=== PATIENT | male | born 1990 | race Caucasian/White ===

== ENCOUNTER 2017-12-10 20:49 | Inpatient (IN) | payer OTHER ==
[~2017-12-10] VITALS: Ht 170.2 cm; Wt 86.0 kg
[2017-12-10 20:55] VITALS: BP 163/79; PULSE 100; RESP 16; TEMP 97.9; O2SAT 100
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
[2017-12-10] MEDS ORDERED: PROPOFOL 200 MG/20 ML AMP IV ONE (21:15)
[2017-12-10] MEDS ORDERED: DIPHTH/TETANUS/ACEL PERTUSSIS (BOOSTER) 0.5 ML VIAL/PFS IM ONE (21:15)
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
[2017-12-10] MEDS ORDERED: ceFAZolin 2 GM PREMIX 50 ML IV ONE (21:45)
[2017-12-10 22:06] LABS: AUTOMATED NEUTROPHIL # 7.8 TH/MM3 (1.8-7.7); BASOPHIL # 0.1 TH/MM3 (0-0.2); BASOPHIL % 0.7 % (0.0-2.0); EOSINOPHIL # 0.4 TH/MM3 (0-0.4); EOSINOPHIL % 3.1 % (0.0-4.0); HEMATOCRIT 41.5 % (39.0-51.0); LYMPH % 25.5 % (9.0-44.0); LYMPHOCYTE # 3.1 TH/MM3 (1.0-4.8); MEAN CELL VOLUME 87.9 FL (80.0-100.0); MEAN CORPUSCULAR HEMOGLOBIN 29.5 PG (27.0-34.0); MEAN CORPUSCULAR HGB CONC 33.6 % (32.0-36.0); MEAN PLATELET VOLUME 8.2 FL (7.0-11.0); MONO % 7.1 % (0.0-8.0); MONOCYTE # 0.9 TH/MM3 (0-0.9); NEUT % 63.6 % (16.0-70.0); PLATELET COUNT 284 TH/MM3 (150-450); RED BLOOD COUNT 4.73 MIL/MM3 (4.50-5.90); RED CELL DISTRIBUTION WIDTH 13.5 % (11.6-17.2); WHITE BLOOD COUNT 12.3 TH/MM3 (4.0-11.0)
--- NOTE | 2017-12-10 22:10 | RADRPT ---
EXAM DATE/TIME: 12/10/2017 21:39 [facility] COMPARISON: No previous studies available for comparison. INDICATIONS : Post reduction. MEDICAL HISTORY : None. SURGICAL HISTORY : None. ENCOUNTER: Subsequent ACUITY: 1 day PAIN SCORE: 10/10 LOCATION: Left middle forearm. FINDINGS: Two view examination of the left forearm demonstrates cast placement across fractures of the distal l eft radius and ulnar with improvement in alignment. CONCLUSION: 1. Status post cast placement with near anatomic alignment. Viral Jefferson MD on December 10, 2017 at 22:07 Board Certified Radiologist. This report was verified electronically.
[2017-12-10] MEDS ORDERED: ceFAZolin 2 GM PREMIX 100 ML IV ONE (22:15)
[2017-12-10 22:19] LABS: BICARBONATE 27.6 MEQ/L (21.0-32.0); CALCIUM 8.9 MG/DL (8.5-10.1); CREATININE 1.12 MG/DL (0.60-1.30)
[2017-12-10] MEDS ORDERED: SODIUM CHLOR 0.9% 1000 ML INJ 1,000 ML IV SCH (22:25)
[2017-12-10 22:27] LABS: INTERNATIONAL NORMALIZED RATIO 1.1 RATIO; PROTHROMBIN TIME - PATIENT 11.1 SEC (9.8-11.6)
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
[2017-12-10 23:00] VITALS: BP 157/80; PULSE 84; RESP 16; O2SAT 99
[2017-12-10] MEDS ORDERED: IOHEXOL 350 MG/ML 10 ML VIAL (for RAD DIAG) IVCONTRAST ONE (23:08)
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
[2017-12-11] VITALS: BP 110/70; PULSE 72; RESP 18; TEMP 99; O2SAT 98
[2017-12-11 00:30] VITALS: BP 135/74; PULSE 80; RESP 16; O2SAT 99
[2017-12-11] MEDS ORDERED: SENNOSIDES 8.6 MG TAB PO PRN (01:00)
[2017-12-11] MEDS ORDERED: ACETAMINOPHEN 325 MG TAB PO PRN (01:00)
[2017-12-11] MEDS ORDERED: HYDROmorphone HCL PF 2 MG/ML VIAL IV PUSH PRN (01:00)
[2017-12-11] MEDS ORDERED: ONDANSETRON HCL 4 MG/2 ML VIAL IVP PRN (01:00)
[2017-12-11] MEDS ORDERED: LACTULOSE SYRUP 20 GM/30 ML CUP PO PRN (01:00)
[2017-12-11] MEDS ORDERED: SODIUM CHLORIDE 0.9% FLUSH 10 ML FLUSH IV FLUSH PRN (01:00)
[2017-12-11] MEDS ORDERED: BISACODYL 10 MG SUPP RECTAL PRN (01:00)
[2017-12-11] MEDS ORDERED: MAGNESIUM HYDROXIDE SUSP 30 ML CUP PO PRN (01:00)
[2017-12-11] MEDS ORDERED: NALOXONE HCL 0.4 MG/ML AMP IV PUSH PRN (01:00)
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
[2017-12-11 04:00] VITALS: BP 145/80; PULSE 72; RESP 16; TEMP 99; O2SAT 98
[2017-12-11] MEDS: SODIUM CHLOR 0.9% 1000 ML INJ 1,000 ML IV SCH ×3 (05:27→20:53)
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
[2017-12-11] MEDS ORDERED: HYDR-3583 PO (07:24)
[2017-12-11] MEDS: SODIUM CHLORIDE 0.9% FLUSH 10 ML FLUSH IV FLUSH SCH ×2 (07:54→21:00)
[2017-12-11] MEDS ORDERED: GENTAMICIN SULFATE 80 MG/2 ML VIAL ONE ×2 (07:59→09:16)
[2017-12-11] MEDS ORDERED: SODIUM CHLOR 0.9% 250 ML INJ 250 ML ONE (07:59)
[2017-12-11] MEDS ORDERED: VANCOMYCIN HCL 1000 MG VIAL ONE (07:59)
[2017-12-11 08:00] VITALS: BP 138/74; PULSE 83; RESP 16; TEMP 98.6; O2SAT 98
[2017-12-11] MEDS ORDERED: ceFAZolin INJ 1,000 MG VIAL ONE (09:16)
[2017-12-11] MEDS ORDERED: SODIUM CHLORIDE 0.9% INJ 50 ML ONE (09:23)
--- NOTE | 2017-12-11 10:36 | PD.OP ---
cc: Fernandez Regan MD Operative Report Date of Surgery: Dec 11, 2017 Preoperative Diagnosis: Open left ulnar shaft fracture, closed left radial shaft fracture Postoperative Diagnosis: Procedure: Irrigation debridement of open left ulnar fracture, open reduction internal fixation of left radius and ulna fractures Anesthesia: General Surgeon: Fernandez Regan Machine Operator Transplanter(s): AZRA Mccrary PA-C The surgical procedure was assisted by my physician furniture removalist's assistant. My P.A. presence was necessary throughout this case for the manipulation and positioning of the surgical extremity. My P.A. was assisting me throughout the duration of this procedure. The skill set of a physician furniture removalist's assistant was medically necessary to complete this procedure. During the surgical case the certified surgical first assistant was working at the back table and the physician furniture removalist's assistant was directly assisting me. Operation and Findings: Implants used: ITS Patient was seen and examined preoperatively. Patient was found to have displaced radius and ulna shaft fractures with an puncture wound over the ulna fracture. Informed consent was obtained and operative site was marked. Patient was brought to operating room and given IV sedation and general anesthesia. Timeout procedure was performed. Operative extremity was prepped and draped with alcohol followed by Hibiclens and draped in usual sterile fashion. IV antibiotics were administered prior to incision. Procedure began with a 5 inch incision over the subcutaneous border of the ulna. Fascia was elevated off of the bone. Fracture site was visualized. At this point attention was turned towards irrigation debridement of the fracture. There was a small amount of visible contamination along the distal ulna. Curettes and rongeurs were used to debride bone. All foreign material was removed. Overall the wound is relatively clean. After excisional debridement was completed, the wound was thoroughly irrigated with 3 L of sterile saline. Next attention was turned to open reduction internal fixation of the ulna fracture. Fracture tenaculums were used to reduce fracture. Fracture keyed into anatomic alignment. A ITS plate was placed across the fracture. Plate was provisionally held to bone with K wires. 3.5 cortical screws were used to compress plate to bone. Multiple screws were placed in each side of fracture. K wires were removed. Fluoroscopy confirmed excellent alignment of fracture with well-placed hardware. Incision was now closed with #PDS, 3-0 PDS, and shara. Next attention was turned to the radius. A 5 inch incision was made over the volar aspect of the forearm. A standard volar approach was utilized. The interval between the radial artery and superficial radial nerve was identified. Neurovascular structures were protected. Soft tissue was elevated off the bone. Fracture site was visualized. Fracture fragments were carefully reduced. Each fracture fragment keyed in anatomic alignment. K wires were used to hold provisional fixation. A ITS plate was contoured to fit the radius. Plate was provisionally held with K wires. 3.5 cortical screws were used to compress plate to bone. Multiple screws were placed in each side of fracture. K wires were removed. Final fluoroscopy revealed excellent of fracture with well-placed hardware. Incision was closed with 3-0 PDS and shara. sterile dressings were applied with Xeroform 4 x 4 soft roll and Arsh wrap. Patient was awakened and transferred to recovery room in stable condition. Forearm compartments were soft and compressible. Fernandez Regan MD Dec 11, 2017 10:36
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
[2017-12-11] MEDS ORDERED: ACETAMINOPHEN 1000 MG/100 ML 100 ML IV ONE (11:06)
[2017-12-11] MEDS ORDERED: MIDAZOLAM HCL 2 MG/2 ML VIAL ONE (11:08)
[2017-12-11] MEDS ORDERED: DEXAMETHASONE SOD PHOS 4 MG/ML VIAL IV ONE (12:00)
[2017-12-11] MEDS ORDERED: ONDANSETRON HCL 4 MG/2 ML VIAL IV ONE (12:00)
[2017-12-11] MEDS ORDERED: PROPOFOL 200 MG/20 ML AMP IV ONE (12:00)
[2017-12-11] MEDS ORDERED: LIDOCAINE HCL 1% PF 5 ML SYRINGE OTHER ONE (12:00)
[2017-12-11] MEDS ORDERED: *morphine SULFATE 8 MG/ML PERIprocedure ONLY ONE (12:22)
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
[2017-12-11 16:00] VITALS: BP 144/74; PULSE 77; RESP 18; TEMP 98.4; O2SAT 97
[2017-12-11] MEDS: ACETAMINOPHEN/HYDROcodone 325 MG/10 MG TAB PO PRN ×2 (16:11→22:19)
[2017-12-11] MEDS: ceFAZolin 2 GM PREMIX 50 ML IV SCH (16:16)
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
[2017-12-11] MEDS: MUPIROCIN 2% OINT 22 GM TUBE TOPICAL SCH ×2 (17:00→22:00)
[2017-12-11] MEDS: GENTAMICIN INJ 80 MG in SODIUM CHLORIDE 0.9% INJ 100 ML IV SCH (19:34)
[2017-12-11 20:00] VITALS: BP 130/65; PULSE 86; RESP 17; TEMP 98.9; O2SAT 98
[2017-12-12 00:55] VITALS: BP 139/66; PULSE 74; RESP 18; TEMP 98.5; O2SAT 98
[2017-12-12] MEDS: ceFAZolin 2 GM PREMIX 50 ML IV SCH ×2 (01:24→09:05)
[2017-12-12] MEDS: ACETAMINOPHEN/HYDROcodone 325 MG/10 MG TAB PO PRN ×3 (01:25→14:14)
[2017-12-12] MEDS: MUPIROCIN 2% OINT 22 GM TUBE TOPICAL SCH ×2 (02:44→14:14)
[2017-12-12 04:51] VITALS: BP 115/57; PULSE 67; RESP 18; TEMP 97.7; O2SAT 97
[2017-12-12] MEDS: SODIUM CHLOR 0.9% 1000 ML INJ 1,000 ML IV SCH (04:55)
--- NOTE | 2017-12-12 06:43 | HHI.FF ---
Face to Face Verification Diagnosis: (1) Open left forearm fracture Nursing Dressing Changes: Daily dressing change, 4x4s, Xeroform, Coverderm/Primapore I have seen patient Riki Akbar on 12/12/17. My clinical findings support the need for the requested home health care services because: Ltd mobility - disease progression I certify that my clinical findings support that this patient is homebound because: Post-op weakness Adolfo Fierro/[employer] Land[employer] Technician PA Dec 12, 2017 06:43
[2017-12-12 07:29] LABS: AUTOMATED NEUTROPHIL # 8.2 TH/MM3 (1.8-7.7); BASOPHIL % 0.1 % (0.0-2.0); EOSINOPHIL % 0.3 % (0.0-4.0); HEMATOCRIT 37.1 % (39.0-51.0); HEMOGLOBIN 12.6 GM/DL (13.0-17.0); LYMPH % 23.2 % (9.0-44.0); LYMPHOCYTE # 2.8 TH/MM3 (1.0-4.8); MEAN CORPUSCULAR HEMOGLOBIN 30.2 PG (27.0-34.0); MEAN PLATELET VOLUME 7.9 FL (7.0-11.0); MONO % 8.9 % (0.0-8.0); MONOCYTE # 1.1 TH/MM3 (0-0.9); NEUT % 67.5 % (16.0-70.0); PLATELET COUNT 206 TH/MM3 (150-450); RED BLOOD COUNT 4.17 MIL/MM3 (4.50-5.90); RED CELL DISTRIBUTION WIDTH 13.4 % (11.6-17.2); WHITE BLOOD COUNT 12.1 TH/MM3 (4.0-11.0)
[2017-12-12 07:43] LABS: BICARBONATE 28.7 MEQ/L (21.0-32.0); CALCIUM 8.2 MG/DL (8.5-10.1); CREATININE 0.81 MG/DL (0.60-1.30)
[2017-12-12 08:00] VITALS: BP 123/69; PULSE 84; RESP 15; TEMP 97.6; O2SAT 100
[2017-12-12] MEDS: GENTAMICIN INJ 80 MG in SODIUM CHLORIDE 0.9% INJ 100 ML IV SCH ×3 (09:07)
[2017-12-12] MEDS: SODIUM CHLORIDE 0.9% FLUSH 10 ML FLUSH IV FLUSH SCH (09:13)
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
== END 2017-12-12 14:36 | disposition home health service (06) | DRG 512 ==
LOC: NEPC 20:49 → NEDA 23:56 → NEDH 12-11 03:56 → N06B 12-11 10:55 → N06A 12-11 13:52
PROVIDERS: ADMIT Hospitalist; ATTEND Hospitalist
PROC: 0PSJXZZ Reposition Left Radius, External Approach (ICD-10-PCS; 2017-12-10)
PROC: 0PSLXZZ Reposition Left Ulna, External Approach (ICD-10-PCS; 2017-12-10)
PROC: 0PSL04Z Reposition Left Ulna with Internal Fixation Device, Open Approach (ICD-10-PCS; 2017-12-11)
PROC: 0PSJ04Z Reposition Left Radius with Internal Fixation Device, Open Approach (ICD-10-PCS; principal; 2017-12-11 09:00)
DX: S52.202B Unspecified fracture of shaft of left ulna, initial encounter for open fracture type I or II (principal); S52.302A Unspecified fracture of shaft of left radius, initial encounter for closed fracture; S20.412A Abrasion of left back wall of thorax, initial encounter; S30.810A Abrasion of lower back and pelvis, initial encounter; V23.4XXA Motorcycle driver injured in collision with car, pick-up truck or van in traffic accident, initial encounter; Y92.410 Unspecified street and highway as the place of occurrence of the external cause; Z23 Encounter for immunization
CPT/HCPCS: 25565; 70450; 71260; 72125; 72129; 72132; 73080; 73090; 74177; 76000; 80048; 85025; 85610; 85730; 90471; 90715; 96361; 96365; C1713; J0131; J0690; J1100; J1170; J1580; J2250; J2270; J2405; J3010; J3370; J7030; J7050; Q9967